=== PATIENT | male | born 1990 | race Caucasian/White ===

== ENCOUNTER 2018-01-04 14:13 | Emergency (ER) | payer BC, MEDICAID ==
[~2018-01-04] VITALS: Ht 177.8 cm; Wt 74.1 kg
[2018-01-04 14:42] VITALS: BP 131/88
== END 2018-01-04 17:37 | disposition home or self-care (01) ==
LOC: EMS 14:14
DX: N50.9 Disorder of male genital organs, unspecified (principal); R03.0 Elevated blood-pressure reading, without diagnosis of hypertension; F17.210 Nicotine dependence, cigarettes, uncomplicated